=== PATIENT | female | born 2005 | race Caucasian/White ===

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

== ENCOUNTER 2023-01-11 19:39 | Emergency (ER) | payer OTHER, BC ==
[~2023-01-11] VITALS: Ht 157.5 cm; Wt 54.5 kg
[2023-01-11 19:58] VITALS: BP 96/67; TEMP 98.1
[2023-01-11 21:46] VITALS: PULSE 68
== END 2023-01-11 21:47 | disposition home or self-care (01) ==
LOC: COL.ER 19:39
DX: S93.401A Sprain of unspecified ligament of right ankle, initial encounter (principal); Z28.310 Unvaccinated for COVID-19; X50.1XXA Overexertion from prolonged static or awkward postures, initial encounter